=== PATIENT | male | born 1990 | race Caucasian/White ===

== ENCOUNTER 2019-03-25 11:44 | Emergency (ER) | payer OTHER ==
[~2019-03-25] VITALS: Ht 177.8 cm; Wt 113.4 kg
== END 2019-03-25 21:11 | disposition home or self-care (01) ==
LOC: ER 11:44
DX: K80.10 Calculus of gallbladder with chronic cholecystitis without obstruction (principal)

== ENCOUNTER 2019-04-22 05:36 | Emergency (ER) | payer OTHER ==
[~2019-04-22] VITALS: Ht 177.8 cm; Wt 117.9 kg
[2019-04-22] MEDS ORDERED: ORPHENADRINE C100 MG PO (07:34)
[2019-04-22] MEDS ORDERED: KETO10TA2 PO (07:34)
== END 2019-04-22 08:19 | disposition home or self-care (01) ==
LOC: ER 05:36
DX: S30.0XXA Contusion of lower back and pelvis, initial encounter (principal); S70.12XA Contusion of left thigh, initial encounter; S00.83XA Contusion of other part of head, initial encounter; V49.9XXA Car occupant (driver) (passenger) injured in unspecified traffic accident, initial encounter; Y93.89 Activity, other specified; Y92.488 Other paved roadways as the place of occurrence of the external cause; Y99.8 Other external cause status

== ENCOUNTER 2022-04-23 06:26 | Emergency (ER) | payer OTHER ==
[~2022-04-23] VITALS: Ht 152.4 cm; Wt 124.7 kg
[~2022-04-23 06:26] MED LIST: KETO10TA2 PO; ORPHENADRINE C100 MG PO
== END 2022-04-23 11:52 | disposition home or self-care (01) ==
LOC: ER 06:26
DX: R50.9 Fever, unspecified (principal); R11.10 Vomiting, unspecified; R19.7 Diarrhea, unspecified; R10.13 Epigastric pain; Z20.822 Contact with and (suspected) exposure to COVID-19

== ENCOUNTER 2024-02-24 06:14 | Emergency (ER) | payer OTHER ==
[~2024-02-24] VITALS: Ht 177.8 cm; Wt 122.5 kg
[2024-02-24] MEDS ORDERED: PROMETHAZINE HCL 50 MG/ML AMPUL IM STA (06:48)
[2024-02-24] MEDS ORDERED: TAMSULOSIN HCL 0.4 MG CAP PO STA (06:49)
[2024-02-24] MEDS ORDERED: KETOROLAC TROMETHAMINE 30 MG VIAL IV STA (06:49)
[2024-02-24] MEDS ORDERED: SODIUM CHLORIDE 0.45 % 1,000 ML IV ONE (07:00)
[2024-02-24] MEDS ORDERED: TAMSULOSIN HCL 0.4 MG CAP PO ONE (07:16)
[2024-02-24] MEDS ORDERED: KETOROLAC TROMETHAMINE 30 MG VIAL ONE (07:16)
[2024-02-24] MEDS ORDERED: PROMETHAZINE HCL 50 MG/ML AMPUL IM ONE (07:16)
[2024-02-24 08:20] LABS: HEMATOCRIT 41.5 % (39.0-48.0); HEMOGLOBIN 14.4 g/dL (13-16.00); MEAN CELL VOLUME 85.5 fL (80.0-100.00); MEAN CORPUSCULAR HEMOGLOBIN 29.6 pg (27.00-32.0); MEAN CORPUSCULAR HGB CONC 34.7 g/dl (32.0-36.0); PLATELET COUNT 285 K/uL (150-450); RED BLOOD COUNT 4.86 M/uL (4.00-6.00); RED CELL DISTRIBUTION WIDTH 13.7 % (11.5-14.5)
[2024-02-24 09:29] LABS: CALCIUM 8.8 mg/dL (8.5-10.1); CREATININE SERUM 0.97 mg/dL (0.70-1.30); GFR 90.27; POTASSIUM 3.69 mEq/L (3.5-5.1)
[2024-02-24 10:50] LABS: PH,URINE 5.5 (5.0-8.0); URINE APPEARANCE Turbid; URINE BILIRRUBIN Small (NEGATIVE); URINE BLOOD Large; URINE COLOR Dark Yellow; URINE GLUCOSE Negative (NEGATIVE); URINE LEUKOCYTE Small; URINE NITRATE Negative; URINE UROBILINOGEN 0.2 E.U./dl
[2024-02-24 10:59] LABS: URINE BACTERIA 17.6 uL (0.0-1933); URINE RBC 3598.4 uL (0.0-20.8); URINE WBC 51.9 uL (0.0-23.2)
[2024-02-24 11:36] LABS: URINE PROTEIN 100 (NEGATIVE)
== END 2024-02-24 12:43 | disposition home or self-care (01) ==
LOC: ER 06:15
PROVIDERS: General Practice
DX: N23 Unspecified renal colic (principal)

== ENCOUNTER 2024-02-28 08:27 | Emergency (ER) | payer OTHER ==
[~2024-02-28] VITALS: Ht 177.8 cm; Wt 122.5 kg
[2024-02-28] MEDS ORDERED: 0.9 % SODIUM CHLORIDE 1,000 ML IV STA (09:03)
[2024-02-28] MEDS ORDERED: PROMETHAZINE HCL 25 MG/ML AMPUL IM ONE (09:15)
[2024-02-28] MEDS ORDERED: MEPERIDINE HCL/PF 50 MG/ML VIAL IM ONE (09:15)
[2024-02-28] MEDS ORDERED: PROMETHAZINE HCL 25 MG/ML AMPUL ONE (09:30)
[2024-02-28 09:52] LABS: HEMATOCRIT 46.7 % (39.0-48.0); HEMOGLOBIN 16.4 g/dL (13-16.00); MEAN CELL VOLUME 86.8 fL (80.0-100.00); MEAN CORPUSCULAR HEMOGLOBIN 30.5 pg (27.00-32.0); MEAN CORPUSCULAR HGB CONC 35.1 g/dl (32.0-36.0); PLATELET COUNT 290 K/uL (150-450); RED BLOOD COUNT 5.37 M/uL (4.00-6.00); RED CELL DISTRIBUTION WIDTH 13.6 % (11.5-14.5)
[2024-02-28] MEDS ORDERED: MEPERIDINE HCL/PF 25 MG/ML VIAL IV ONE (11:45)
[2024-02-28 13:08] LABS: PH,URINE 5.5 (5.0-8.0); URINE APPEARANCE Clear; URINE BILIRRUBIN Negative (NEGATIVE); URINE BLOOD Negative; URINE COLOR Yellow; URINE GLUCOSE Negative (NEGATIVE); URINE LEUKOCYTE Negative; URINE NITRATE Negative; URINE PROTEIN Trace (NEGATIVE); URINE UROBILINOGEN 0.2 E.U./dl
[2024-02-28 13:09] LABS: URINE BACTERIA 6.2 uL (0.0-1933); URINE EPITHELIAL CELLS 2.7 uL (0.0-38.8); URINE RBC 3.2 uL (0.0-20.8); URINE WBC 3.2 uL (0.0-23.2)
[2024-02-28] MEDS ORDERED: LORazepam 1 MG TABLET PO ONE (14:00)
[2024-02-28] MEDS ORDERED: KETOROLAC TROMETHAMINE 60 MG VIAL IM ONE ×2 (14:00→14:15)
[2024-02-28] MEDS ORDERED: HYOSCYAMINE SULFATE 0.125 MG TAB.SUBL ONE (16:55)
[2024-02-28] MEDS ORDERED: HYOSCYAMINE SULFATE 0.125 MG TAB.SUBL SL ONE (17:00)
[2024-02-28 17:38] LABS: CALCIUM 9.2 mg/dL (8.5-10.1); CREATININE SERUM 1.2 mg/dL (0.70-1.30); GFR 70.62; POTASSIUM 4.92 mEq/L (3.5-5.1)
== END 2024-02-28 18:02 | disposition home or self-care (01) ==
LOC: ER 08:28
PROVIDERS: Emergency Medicine; General Practice
DX: N20.1 Calculus of ureter (principal)